=== PATIENT | male | born 1965 | race Caucasian/White ===

== ENCOUNTER 2022-08-02 16:51 | Emergency (ER) | payer SELFPAY ==
[~2022-08-02] VITALS: Ht 172.7 cm; Wt 95.3 kg
[2022-08-02] MEDS ORDERED: LIDOCAINE HCL/MPF 1% 30 ML VIAL IJ ONE (18:53)
[2022-08-02] MEDS ORDERED: TDAP [DIPH/PERTUSSIS/TET] 0.5 ML VIAL IM ONE ×2 (19:00→19:29)
[2022-08-02] MEDS ORDERED: LIDOCAINE 0.5% HCL 50 ML VIAL IJ ONE (19:00)
--- NOTE | 2022-08-02 19:06 | NUR ---
PAtient AOx4 able to express his own concerns. Discussed plan of care, patient verbalized agreement
--- NOTE | 2022-08-02 19:30 | NUR ---
Administered TDAp vaccine, pt verbalized agreement
--- NOTE | 2022-08-02 19:36 | NUR ---
DR HERMOSILLO AT BEDSIDE
--- NOTE | 2022-08-02 20:11 | NUR ---
Patient discharged to home in stable condition. Written and verbal after care instructions given. Patient verbalizes understanding of instruction. Pt ambulatory with a steady gait
[2022-08-02 20:12] VITALS: BP 119/88
== END 2022-08-02 20:12 | disposition home or self-care (01) ==
LOC: ER 17:05
DX: S61.216A Laceration without foreign body of right little finger without damage to nail, initial encounter (principal); F17.200 Nicotine dependence, unspecified, uncomplicated; Z60.2 Problems related to living alone; W22.8XXA Striking against or struck by other objects, initial encounter; Y93.89 Activity, other specified; Y92.89 Other specified places as the place of occurrence of the external cause; Y99.8 Other external cause status
CPT/HCPCS: 99283; 12001; 90471; 90715; A6403; J3490